=== PATIENT | female | born 1985 | race Caucasian/White ===

== ENCOUNTER 2022-02-12 14:29 | Emergency (ER) | payer MEDICAID, SELFPAY ==
[2022-02-12 14:36] VITALS: BP 127/105; PULSE 117; RESP 16; TEMP 36.6; O2SAT 98; BMI 24.0
[2022-02-12 15:16] LABS: Absolute Lymphocyte Count 1.54 X10^3/uL (0.83-4.51); Absolute Neutrophil Count 6.9 X10^3/uL (2.0-7.7); Basophil# 0.02 X10^3/uL; Basophil% 0.2 % (0-1); Eosinophil# 0.02 X10^3/uL; Eosinophils% 0.2 % (0-5); Hematocrit 36.8 % (37-47); Hemoglobin 12.1 g/dL (12.0-15.0); Lymphocyte # 1.54 X10^3/ul (0.83-4.51); Lymphocyte % 16.3 % (19-41); Mean Corp Hgb Conc 32.9 g/dL (32-36); Mean Corpuscular Hgb 26.7 pg (27.0-32.0); Mean Corpuscular Volume 81.2 fL (81-99); Mean Platelet Vol. 11.2 fl (6.2-12.0); Monocyte# 0.93 X10^3/uL; Monocyte% 9.8 % (0-10); NRBC Flagged by Analyzer 0 % (0-5); Neutrophil # 6.92 X10^3/uL (2.7-7.7); Neutrophil % 73.1 % (47-70); Platelet Count 285 K/mm3 (150-450); RBC Distribution Width SD 44.4 fl (35.1-43.9); Red Blood Count 4.53 M/mm3 (4.2-5.4); White Blood Count 9.5 K/mm3 (4.4-11.0)
[2022-02-12 15:27] LABS: ALB/GLOB Ratio 0.6 RATIO (0.9-2.4); AST(SGOT) 15 U/L (15-37); Alanine Aminotransfer ALT/SGPT 19 U/L (13-56); Albumin, Serum 3.2 g/dL (3.2-5.0); Alkaline Phosphatase 79 U/L (45-117); Anion Gap 5 (5-15); BUN 11 mg/dL (7-18); BUN/Creat Ratio 13.6 RATIO (10-20); Chloride 104 mmol/L (98-107); Creatinine, Serum 0.81 mg/dL (0.55-1.02); EST Glomerular Filtration Rate 86 mL/min (>60); Est Glom Filt Rate - Afr Amer 104 mL/min (>60); Estimated Creatinine Clearance 84.51 ml/min; Globulin 5.2 g/dL (2.2-4.2); Glucose 101 mg/dL (74-106); Potassium 3.4 mmol/L (3.5-5.1); Protein, Total 8.4 g/dL (6.4-8.2); Sodium Level 134 mmol/L (136-145)
--- NOTE | 2022-02-12 15:52 | EX.ED.DYSGE1 ---
HPI History of Present Illness Chief Complaint: Rash Detail of Chief Complaint: Rash and sore throat Informant: patient Onset/Context/Timing Onset: Days (Rash 2 days ago throat pain 5 days ago) Context: Sudden Onset Timing: Continuous Quality: Pain and rash predominantly extremity and back Current Severity: Moderate Maximum Severity: Moderate Worsened by: Nothing Relieved by: Nothing Associated Symptoms Associated Symptoms: No documented fever or chills. Narrative Narrative: Patient is a 36-year-old woman who presents with sore throat that started 5 days ago. She denies rhinorrhea, cough or shortness of breath. She denies documented fever. She has been around children. She reports none of them have been ill. She denies headache. She denies photophobia, neck pain or stiffness. She complains of pain with swallowing. She has discomfort whether it is liquids or solids. There is no drooling. She denies chest pain, shortness of breath, orthopnea or PND. She denies nausea, vomiting or diarrhea. She denies urologic symptoms. She does have a rash. She denies being in any hot tub recently. Prior similar symptoms: No Recent Illness/Hospitalization: No PFSH PFSH Medical History no medical history no medical history Home Medications vits,calcium no.78-iron fumarate-folic acid 29 mg-1 mg tablet (Prenatabs FA) 1 tab PO DAILY 09/08/13 [History Last Taken Unknown] doxycycline monohydrate 100 mg capsule 100 mg PO BID #20 CAPSULES 02/12/22 [Rx Last Taken Unknown] Allergy/AdvReac Type Severity Reaction Status Date / Time No Known Allergies Allergy Verified 02/12/22 14:41 Social History (Updated 02/12/22 @ 15:[address] Maximino Moore MD) household members: none Smoking Status: Current every day smoker tobacco type: cigarettes alcohol intake: current substance use type: other details: History of IV drug abuse ROS ROS ED Constitutional Constitutional ED: Denies chills, fever(s), subjective, sweats or weight loss Eyes Eyes: Denies blurry vision, change in vision or diplopia ENT ENT ED: Denies ear pain, rhinorrhea or sore throat Cardiovascular Cardiovascular: Denies chest pain or palpitations Respiratory/Chest Respiratory/Chest: Denies cough, dyspnea or dyspnea on exertion Gastrointestinal Gastrointestinal: Denies abdominal pain, diarrhea, nausea or vomiting Musculoskeletal Musculoskeletal: Denies arthralgias, back pain, myalgias or neck pain Integumentary Reports rash; Denies abscess or Abrasions Neurologic Neurologic: Denies paresthesias or weakness Psychiatric Psychiatric: Denies anxiety or depression Hematologic/Lymphatic Hematologic/Lymphatic: Denies easy bruising or lymphadenopathy EXAM Physical Exam Const Vital Signs: 02/12/22 14:36 Temperature 97.9 F Temperature Source Temporal Pulse Rate 117 H Respiratory Rate 16 Blood Pressure 127/105 H Blood Pressure Mean 112 Pulse Ox 98 Oxygen Delivery Method Room Air Positive well nourished and well developed; Negative for obese, cachectic, contractures or unkempt General Appearance ED: well developed and NAD; Negative for unkempt, cachectic, contractures, cyanotic, diaphoretic or pallor Nutritional Appearance: Negative for cachectic or obese HEENT Reports moist mucous membranes HEENT Narrative: Head is atraumatic normocephalic. Ears normal. Nares patent. Posterior pharynx reveals erythema with exudate and enlarged tonsils. The uvula is not displaced Eyes PERRL and EOMs intact bilaterally General Eye ED: Negative for pale conjunctiva or scleral icterus Neck No no lymphadenopathy, supple and no JVD Neck Narrative: Bilateral anterior cervical lymphadenopathy. General: tenderness Chest Wall inspection of chest normal Resp normal respiratory effort and clear to auscultation bilaterally Cardio regular rate, regular rhythm, S1 normal heart sound, S2 normal heart sound and no murmurs GI normal to inspection, nondistended, normoactive bowel sounds, non-tender and non-distended; Negative for hepatosplenomegaly Back/Spine General Back: Negative for CVA tenderness Cervical Spine: Negative for cervical spine tenderness Thoracic Spine / Upper Back: Negative for thoracic spinal tenderness Lumbar Spine / Lower Back: Negative for lumbar spinal tenderness Extremity Negative for normal to inspection Neuro oriented x3, CN's II-XII intact bilaterally and no sensory deficits noted Sensorium / Orientation: alert Motor Exam: strength 5/5 throughout Psych mental status grossly normal Appearance: Negative for unkempt Skin no rashes or lesions noted and no wounds General Skin Exam: elasticity normal; Negative for jaundice or pallor Rashes: rashes noted MDM MDM MDM Narrative Medical decision making narrative: With history of IV use, tachycardia and vague generalized symptoms a CBC with differential was obtained to assess white count, H&H and differential. Comfortable bowel panel was obtained to assess transaminases, CO2 anion gap and renal function since antibiotics are indicated. Adjust will be made if needed. Because patient has Centor score of 2 with exudative tonsillitis rapid strep was obtained. Rapid strep was negative. Lab Data Attestation: I reviewed the patient's lab results. Lab results narrative: CBC is unremarkable. Comprehensive metabolic panel is essentially unremarkable. Total protein is elevated 8.4 with a globulin of 5.2. Labs: Laboratory Results - last 24 hr 02/12/22 02/12/22 15:00 15:00 WBC 9.5 RBC 4.53 Hgb 12.1 Hct 36.8 L MCV 81.2 MCH 26.7 L MCHC 32.9 RDW Std Deviation 44.4 H RDW Coeff of Ko 15.0 H Plt Count 285 MPV 11.2 Immature Gran % (Auto) 0.400 Neut % (Auto) 73.1 H Lymph % (Auto) 16.3 L Tillman % (Auto) 9.8 Eos % (Auto) 0.2 Baso % (Auto) 0.2 Absolute Neuts (auto) 6.9 Absolute Lymphs (auto) 1.54 Nucleated RBC % 0 Sodium 134 L Potassium 3.4 L Chloride 104 Carbon Dioxide 25.0 Anion Gap 5 BUN 11 Creatinine 0.81 Estim Creat Clear Calc 84.51 Est GFR (MDRD) Af Amer 104 Est GFR (MDRD) Non-Af 86 BUN/Creatinine Ratio 13.6 Glucose 101 Calcium 9.0 Total Bilirubin 0.60 AST 15 ALT 19 Alkaline Phosphatase 79 Total Protein 8.4 H Albumin 3.2 Globulin 5.2 H Albumin/Globulin Ratio 0.6 L Discharge Plan Triage Chief Complaint: Rash ED Provider: Maximino Moore Dx/Rx/DC Orders Clinical Impression: Pustular rash, Exudative tonsillitis, Active intravenous drug use Instructions: ED Folliculitis, ED Tonsillitis Prescriptions: New doxycycline monohydrate 100 mg capsule 100 mg PO BID Qty: 20 0RF No Action vit,[id number] [Prenatabs FA] 1 TABLET tablet 1 tab PO DAILY Primary Care Provider: Care Physician,No Primary Referrals: Bryce Wilson MD [Med Staff - Associate Software Developer] - 5-7 Days Care Physician,No Primary [Primary Care Provider] - Activity Restrictions/Additional Instructions: 1. Salt water gargle 6-8 times a day 2. Cepastat or Chloraseptic spray for discomfort Disposition Disposition: Home, Self Care
--- NOTE | 2022-02-14 14:38 | ED.RN ---
RX sent in to cover pos strep results. Pt is aware and rx was [facility]
== END 2022-02-12 16:15 | disposition home or self-care (01) ==
PROVIDERS: Emergency Provider Emergency Medicine; Visit Provider Emergency Medicine
DX: L08.0 Pyoderma (principal); F17.210 Nicotine dependence, cigarettes, uncomplicated; J03.90 Acute tonsillitis, unspecified; F19.90 Other psychoactive substance use, unspecified, uncomplicated
CPT/HCPCS: 80053; 85025; 87077; 87880; 99282; A4216